=== PATIENT | female | born 1990 | race Hispanic/Latino ===

== ENCOUNTER 2023-12-17 22:48 | Emergency (ER) | payer SELFPAY ==
[2023-12-17 23:58] LABS: Specific Gravity 1.034 (1.005-1.030); Specific Gravity > 1.030 (1.005-1.030); Sqamous Epithelial <5 /HPF (None Seen); Urine Bacteria <20 /HPF (<20); Urine Bilirubin NEGATIVE (Negative); Urine Blood 3+ (OVER) (Negative); Urine Clarity Extremely Turbid (Clear); Urine Color Dark-Brown (Yellow); Urine Crystals Unidentified Few /HPF (None Seen); Urine Culture Reflex Order REFLEXED; Urine Glucose NEGATIVE (Negative); Urine Ketones NEGATIVE (Negative); Urine Microscopic Reflex YN ORDER UMIC; Urine Nitrite NEGATIVE (Negative); Urine Protein 2+ (Negative); Urine RBC >50 /HPF (None Seen); Urine Urobilinogen Normal (Normal); Urine WBC >50 /HPF (<5); Urine Yeast (Budding) Few /HPF (None Seen); Urine pH 6.5 (5.0-7.0)
[2023-12-18] MEDS ORDERED: MORPHINE 2 MG/ML SYR ONE (00:42)
[2023-12-18 00:46] LABS: Absolute Basophils 0.1 K/uL (0-0.5); Absolute Eosinophils 0.2 K/uL (0-0.5); Absolute Lymphocytes (CBC) 2.3 K/uL (0.7-4.9); Absolute Monocytes 0.7 K/uL (0.1-1.3); Absolute Neutrophil 6.3 K/uL (1.8-8.0); Basophils % 0.5 % (0-1.3); Eosinophils % 2.3 % (0-4.4); Hematocrit 37.3 % (36.0-45.0); Hemoglobin 12.9 g/dL (12.0-15.0); Lymphocytes % 24.1 % (15.3-44.8); MCHC 34.6 g/dL (32.0-36.0); MCV 89.7 fL (80-100); MPV 9.7 fL (7.6-11.3); Monocytes % 7.7 % (3.3-12.3); Neutrophils % 65.4 % (41.7-73.7); Platelets 236 thou/uL (152-406); RBC Red Blood Cell Count 4.16 M/uL (3.86-4.86); Red Cell Distribution Width 13.3 % (12.1-15.2)
[2023-12-18 01:15] LABS: Anion Gap 7.6 mEq/L (5.0-15.0); Potassium 3.6 mEq/L (3.5-5.1)
[2023-12-18] MEDS ORDERED: NA CHLORIDE 0.9% 1,000 ML ONE (02:10)
[2023-12-18] MEDS ORDERED: ACETAMINOPHEN 500 MG TAB ONE (02:55)
--- NOTE | 2023-12-18 03:59 | EDPHYS ---
Physician Documentation [facility] Name: Poli Omalley Age: 33 yrs Sex: Female : 1990 Arrival Date: 12/17/2023 Time: 22:48 Bed 6 Private MD: ED Physician Ge Mclaughlin HPI: 12/17 00:00 This 33 yrs old Female presents to ER via Ambulatory with complaints of cp Vaginal Bleeding, + Preg <12wks, Abdominal Cramping. 00:00 The patient presents to the emergency department with vaginal bleeding, with clots. The cp estimated gestational age is 6 weeks. Associated signs and symptoms: Pertinent positives: left lower abdomen pain, Pertinent negatives: chest pain, diarrhea, fever, vomiting. 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 - Social history:: Smoking status: Patient denies any tobacco usage or history of. ROS: 12/17 00:05 Constitutional: Negative for body aches, chills, fever, poor PO intake, cp 00:05 Cardiovascular: Negative for chest pain, palpitations, cp 00:05 Respiratory: Negative for cough, shortness of breath, wheezing, 00:05 Abdomen/GI: Positive for abdominal pain, of the left lower quadrant, 00:05 : Positive for vaginal bleeding, Negative for urinary symptoms, hematuria, 00:05 Neuro: Negative for altered mental status, dizziness, headache, weakness, 00:05 All other systems are negative, Exam: 00:08 ECG was reviewed by the Attending Physician. cp 00:10 Constitutional: The patient appears in no acute distress, alert, awake, non-toxic, well cp developed, well nourished, 00:10 Head/Face: Normocephalic, atraumatic. cp 00:10 Eyes: Periorbital structures: appear normal, Conjunctiva: normal, no exudate, no injection, Sclera: no appreciated abnormality, Lids and lashes: appear normal, bilaterally, 00:10 ENT: External ear(s): are unremarkable, Nose: is normal, Mouth: Lips: moist, Oral mucosa: pink and intact, moist, Posterior pharynx: Airway: no evidence of obstruction, patent, 00:10 Chest/axilla: Inspection: normal, 00:10 Cardiovascular: Rate: tachycardic, Rhythm: regular, 00:10 Respiratory: the patient does not display signs of respiratory distress, Respirations: normal, no use of accessory muscles, no retractions, labored breathing, is not present, Breath sounds: are clear throughout, no decreased breath sounds, no stridor, no wheezing, 00:10 Abdomen/GI: Inspection: abdomen appears normal, Bowel sounds: active, all quadrants, Palpation: soft, in all quadrants, moderate abdominal tenderness, in the left lower quadrant, rebound tenderness, is not appreciated, involuntary guarding, is not appreciated, 00:10 Back: pain, is absent, ROM is normal, Vital Signs: 12/16 23:16 BP 148 / 92; Pulse 119; Resp 18 S; Temp 98.6(O); Pulse Ox 100% on R/A; Weight 76 kg as6 (R); Height 5 ft. 2 in. (R); Pain 9/10; 12/17 00:32 BP 131 / 86; Pulse 116; Pulse Ox 100% on R/A; tm6 01:20 BP 127 / 79; Pulse 100; Pulse Ox 97% on R/A; tm6 02:54 BP 123 / 87; Pulse 96; Pulse Ox 99% on R/A; tm6 04:14 BP 103 / 65; Pulse 88; Resp 18; Temp 97.1(IR); Pulse Ox 98% on R/A; Pain 4/10; cm10 12/16 23:16 Body Mass Index 29.69 (76.00 kg, 160 cm) as6 12/16 23:16 Pain Scale: Adult as6 04:14 Pain Scale: Adult cm10 MDM: 12/16 23:19 Patient medically screened. [facility] 12/17 00:00 Differential diagnosis: STD, ectopic . cp 03:57 Data reviewed: vital signs, nurses notes, lab test result(s), EKG, radiologic studies, cp ultrasound. 12/16 23:32 Order name: Abo/rh Typing; Complete Time: 01:55 12/17 01:55 Interpretation: Reviewed. 12/16 23:32 Order name: Basic Metabolic Panel; Complete Time: 01:20 cp 12/17 01:20 Interpretation: Normal except: GLUC 111; BUN 23; CRE 1.18; GFR 62. 12/16 23:32 Order name: CBC with Diff; Complete Time: 01:15 cp 12/16 23:32 Order name: Test, Urine; Complete Time: 00:33 cp 12/17 00:37 Interpretation: Reviewed. 12/16 23:32 Order name: Quantitative Hcg; Complete Time: 01:20 cp 12/17 01:20 Interpretation: Reviewed. 12/16 23:32 Order name: Urinalysis w/ reflexes; Complete Time: 00:33 cp 12/17 01:15 Interpretation: Reviewed. 12/17 00:01 Order name: Urine Culture EDMS 12/17 02:14 Order name: ABO/RH no charge; Complete Time: 03:32 EDMS 12/17 03:32 Interpretation: Reviewed. 12/17 01:54 Order name: US Transvaginal Ob 12/16 23:32 Order name: IV Saline Lock; Complete Time: 00:29 12/16 23:32 Order name: Labs collected and sent; Complete Time: 00:29 cp 12/16 23:32 Order name: NPO; Complete Time: 00:29 cp EC:08 Rate is 108 beats/min. Rhythm is regular. MS interval is normal. QRS interval is cp normal. QT interval is normal. T waves are Inverted in lead aVR. Interpreted by me. Reviewed by me. Administered Medications: 00:56 Drug: morphine IVP or IV 2 mg IVP once over 4 mins Route: IVP; Infused Over: 4 mins; cm10 Site: left antecubital; 03:55 Follow up: Response: No adverse reaction cm10 02:13 Drug: NS 0.9% IV 1000 ml IV at 1 bolus Per protocol; 1000 mL bolus Route: IV; Rate: 1 cm10 bolus; Site: left antecubital; 03:55 Follow up: Response: No adverse reaction; IV Status: Completed infusion; IV Intake: cm10 1000ml 02:58 Drug: Acetaminophen PO 1000 mg PO once Route: PO; tm6 03:55 Follow up: Response: No adverse reaction cm10 Disposition Summary: 12/18/23 03:58 Discharge Ordered Notes: Location: Home cp Problem: new cp Symptoms: have improved cp Condition: Stable cp Diagnosis - Threatened cp Followup: cp - With: Private Physician - When: 48 Hours - Reason: Repeat Beta-HCG (48 Hours) Discharge Instructions: - Discharge Summary Sheet cp - Care cp - Threatened Miscarriage cp - Vaginal Bleeding During , First Trimester cp - Activity Restriction During cp - Form - Excuse from Work, School, or Physical Activity cp Forms: - Medication Reconciliation Form cp - Thank You Letter cp - Antibiotic Education cp - Prescription Opioid Use cp - Patient Portal Instructions cp - Leadership Thank You Letter cp Prescriptions: - Macrobid 100 mg Oral Capsule - take 1 capsule ORAL route every 12 hours for 7 days; 14 capsule; Refills: 0, cp Product Selection Permitted Signatures: Dispatcher [employer] EDMS Ge Mclaughlin MD MD ashwini Ge Peck PA PA cp Renaldo Monroe RN RN as6 Ember Escoto RN RN cm10 Anai Valdes RN RN tm6 Corrections: (The following items were deleted from the chart) 12/16 23:32 23:32 ABO/RH TYPING+BB.LAB.BRZ ordered. EDMS EDMS 23:32 23:32 BASIC METABOLIC PANEL+C.LAB.BRZ ordered. EDMS EDMS 23:32 23:32 CBC+H.LAB.BRZ ordered. EDMS EDMS 23:32 23:32 Test, Urine+UC.LAB.BRZ ordered. EDMS EDMS 23:32 23:32 QUANTITATIVE HCG+C.LAB.BRZ ordered. EDMS EDMS 23:32 23:32 Urinalysis+U.LAB.BRZ ordered. EDMS EDMS
--- NOTE | 2023-12-18 03:59 | ER ---
Nurse's Notes [facility] Name: Poli Omalley Age: 33 yrs Sex: Female : 1990 Arrival Date: 12/17/2023 Time: 22:48 Bed 6 Private MD: Diagnosis: Threatened Presentation: 12/16 23:16 Chief complaint: Patient states: appox 6 weeks gestation with vaginal bleeding that as6 started today and cramping x2 days. Coronavirus screen: At this time, the client does not indicate any symptoms associated with coronavirus-19. Ebola Screen: No symptoms or risks identified at this time. Initial Sepsis Screen: Does the patient meet any 2 criteria? No. Patient's initial sepsis screen is negative. Does the patient have a suspected source of infection? No. Patient's initial sepsis screen is negative. Risk Assessment: Do you want to hurt yourself or someone else? Patient reports no desire to harm self or others. Onset of symptoms was December 15, 2023. 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 - Social history:: Smoking status: Patient denies any tobacco usage or history of. Screenin/31 00:58 [facility] ED Fall Risk Assessment (Adult) History of falling in the last 3 months, cm10 including since admission No falls in past 3 months (0 pts) Confusion or Disorientation No (0 pts) Intoxicated or Sedated No (0 pts) Impaired Gait No (0 pts) Mobility Assist Device Used No (0 pt) Altered Elimination No (0 pt) Score/Fall Risk Level 0 - 2 = Low Risk Oriented to surroundings, Maintained a safe environment, Hourly rounding (assess needs \T\ fall precautionary measures) done. Abuse screen: Denies threats or abuse. Denies injuries from another. Nutritional screening: No deficits noted. Tuberculosis screening: No symptoms or risk factors identified. Assessment: 00:56 Obstetrical Assessment: Patient reports abdominal cramping, headache. General: Appears cm10 in no apparent distress. comfortable, Behavior is calm, cooperative. Pain: Complains of pain in abdomen Pain currently is 9 out of 10 on a pain scale. Quality of pain is described as crampy. Neuro: No deficits noted. Level of Consciousness is awake, alert, obeys commands, Oriented to person, place, time, situation. Cardiovascular: No deficits noted. Capillary refill < 3 seconds Patient's skin is warm and dry. Respiratory: No deficits noted. Airway is patent Respiratory effort is even, unlabored, Respiratory pattern is regular, symmetrical. : No deficits noted. Reports cramping, vaginal bleeding that is. Derm: No deficits noted. Skin is intact, Skin is pink, warm \T\ dry. Musculoskeletal: No deficits noted. Range of motion: intact in all extremities. 01:20 Reassessment: Patient and/or family updated on plan of care and expected duration. Pain tm6 level reassessed. Patient is alert, oriented x 3, equal unlabored respirations, skin warm/dry/pink. 02:54 Reassessment: Patient and/or family updated on plan of care and expected duration. Pain tm6 level reassessed. Patient is alert, oriented x 3, equal unlabored respirations, skin warm/dry/pink. Vital Signs: 12/16 23:16 BP 148 / 92; Pulse 119; Resp 18 S; Temp 98.6(O); Pulse Ox 100% on R/A; Weight 76 kg as6 (R); Height 5 ft. 2 in. (R); Pain 9/10; 12/17 00:32 BP 131 / 86; Pulse 116; Pulse Ox 100% on R/A; tm6 01:20 BP 127 / 79; Pulse 100; Pulse Ox 97% on R/A; tm6 02:54 BP 123 / 87; Pulse 96; Pulse Ox 99% on R/A; tm6 04:14 BP 103 / 65; Pulse 88; Resp 18; Temp 97.1(IR); Pulse Ox 98% on R/A; Pain 4/10; cm10 03/30 23:16 Body Mass Index 29.69 (76.00 kg, 160 cm) as6 12/16 23:16 Pain Scale: Adult as6 04:14 Pain Scale: Adult cm10 ED Course: 12/16 22:53 Patient arrived in ED. im 23:14 Ge Peck PA is PHCP. cp 23:14 Ge Mclaughlin MD is Attending Physician. cp 23:18 Triage completed. as6 23:18 Arm band placed on. as6 23:42 Test, Urine Sent. as6 23:42 Urinalysis w/ reflexes Sent. as6 12/17 00:29 Abo/rh Typing Sent. tm6 00:29 Basic Metabolic Panel Sent. tm6 00:29 CBC with Diff Sent. tm6 00:29 Quantitative Hcg Sent. tm6 00:39 Anai Valdes, MOUSTAPHA is Primary Nurse. tm6 00:42 Inserted saline lock: 22 gauge in left antecubital area, using aseptic technique. tm6 00:58 Patient has correct armband on for positive identification. Bed in low position. Call cm10 light in reach. Side rails up X2. Provided Education on: ER process and procedures.. Pulse ox on. NIBP on. 02:36 US Transvaginal Ob In Process Unspecified. EDMS 04:15 No provider procedures requiring assistance completed. IV discontinued, intact, cm10 bleeding controlled, No redness/swelling at site. Pressure dressing applied. Administered Medications: 00:56 Drug: morphine IVP or IV 2 mg IVP once over 4 mins Route: IVP; Infused Over: 4 mins; cm10 Site: left antecubital; 03:55 Follow up: Response: No adverse reaction cm10 02:13 Drug: NS 0.9% IV 1000 ml IV at 1 bolus Per protocol; 1000 mL bolus Route: IV; Rate: 1 cm10 bolus; Site: left antecubital; 03:55 Follow up: Response: No adverse reaction; IV Status: Completed infusion; IV Intake: cm10 1000ml 02:58 Drug: Acetaminophen PO 1000 mg PO once Route: PO; tm6 03:55 Follow up: Response: No adverse reaction cm10 Medication: 00:58 VIS not applicable for this client. cm10 Intake: 03:55 IV: 1000ml; Total: 1000ml. cm10 Outcome: 03:58 Discharge ordered by . cp 04:15 Discharged to home ambulatory, with significant other, cm10 04:15 Condition: good 04:15 Discharge instructions given to patient, significant other, Instructed on discharge instructions, follow up and referral plans. medication usage, Demonstrated understanding of instructions, follow-up care, medications, Prescriptions given X 1, 04:15 Patient left the ED. cm10 Signatures: Dispatcher [employer] EDMS Ge Peck PA PA cp Slawson, Ashby, RN RN as6 Dorothy Perales Clarissa RN RN cm10 Anai Valdes RN RN tm6
[2023-12-18 08:53] VITALS: BP 103/65; TEMP 97.1; O2SAT 98
--- NOTE | 2023-12-18 16:25 | RAD REPORT ---
EXAM DESCRIPTION: US - Transvaginal OB - 12/18/2023 2:34 am CLINICAL HISTORY: Female, 33 years old, vaginal bleeding;Abd pain Additional history: LMP 11/01/2023; EGA 6 weeks 5 days; WALT 08/07/2024 COMPARISON: None. TECHNIQUE: Transvaginal ultrasound of the pelvis. FINDINGS: UTERUS: Measures 9.6 x 5.5 x 7.3 cm. A sac at the fundal aspect of the endometrium has nakia n diameter of 0.9 cm. Normal morphology yolk sac measuring 0.4 cm. No visualized pole. No visua lized. Gestational hemorrhage. Homogeneous myometrium without discrete lesion. RIGHT OVARY: Measures 2.4 x 1.2 x 1.7 cm, with volume of 2.5 mL. Normal morphology. Normal color and spectral Doppler flow. LEFT OVARY: Measures 3.6 x 1.8 x 4.3 cm, with volume of 14.3 mL. Thick-walled, probable corpus luteum cyst. Normal color and spectral Doppler flow. FREE FLUID: No visualized free fluid. IMPRESSION: 1. Intrauterine gestational sac with a mean diameter of 0.9 cm, corresponding to estim ated gestational age of 5 weeks 5 days (WALT 08/14/2024). Findings most consistent with normal early p regnancy. Recommend clinical follow-up with quantitative hCG values, and follow-up ultrasound in [place] 11 days for recharacterization. 2. Sonographic and provided clinical dating differ by one week, supporting redating. Electronically signed by: Darren Berg MD 12/18/2023 04:27 AM CDT Due to temporary technical issues with the PACS/Fluency reporting system, reports are being signed by the in house radiologists without review as a courtesy to insure prompt reporting. The interpreting radiologist is fully responsible for the content of the report
--- NOTE | 2023-12-19 13:43 | EKG ---
Test Date: 2023-12-18 Test Time: 00:01:04 Package Lift Operator: NITA MEASUREMENT RESULTS: Intervals: Rate: 108 WI: 152 QRSD: 76 QT: 336 QTc: 450 [place]: P: 12 WI: 152 QRS: 17 T: 27 INTERPRETIVE STATEMENTS: Sinus tachycardia Otherwise normal ECG No previous ECG available for comparison Electronically Signed On 12-19-23 13:37:21 CDT by Pasquale Alvarez
== END 2023-12-18 04:15 | disposition home or self-care (01) ==
LOC: ER 22:48
DX: O20.0 Threatened abortion (principal); Z3A.01 Less than 8 weeks gestation of pregnancy
CPT/HCPCS: 36415; 76817; 80048; 81001; 81025; 84702; 85025; 86900; 86901; 87086; 87088; 93005; 96361; 96374; 99284; J2270; J7030

== ENCOUNTER 2023-12-18 08:37 | Emergency (ER) | payer SELFPAY ==
[2023-12-18] MEDS ORDERED: ONDANSETRON 4 MG/2 ML VIAL ONE (09:24)
[2023-12-18] MEDS ORDERED: HYDROMORPHONE HCL 1 MG/ML INJ ONE (09:24)
[2023-12-18 09:26] LABS: Absolute Eosinophils 0.2 K/uL (0-0.5); Absolute Lymphocytes (CBC) 1.8 K/uL (0.7-4.9); Absolute Monocytes 0.5 K/uL (0.1-1.3); Absolute Neutrophil 5.2 K/uL (1.8-8.0); Basophils % 0.5 % (0-1.3); Eosinophils % 2.4 % (0-4.4); Hematocrit 37.8 % (36.0-45.0); Lymphocytes % 23.9 % (15.3-44.8); MCHC 34.4 g/dL (32.0-36.0); MPV 9.4 fL (7.6-11.3); Monocytes % 6.2 % (3.3-12.3); Nucleated Red Blood Cells % 0.1 % (0-0); Platelets 223 thou/uL (152-406); Red Cell Distribution Width 13.5 % (12.1-15.2)
[2023-12-18 09:46] LABS: Specific Gravity 1.027 (1.005-1.030); Sqamous Epithelial <5 /HPF (None Seen); Urine Bacteria None Seen /HPF (<20); Urine Bilirubin NEGATIVE (Negative); Urine Blood 2+ (Negative); Urine Clarity Clear (Clear); Urine Color Light-Yellow (Yellow); Urine Culture Reflex Order NOT NEEDED; Urine Glucose NEGATIVE (Negative); Urine Ketones NEGATIVE (Negative); Urine Microscopic Reflex YN ORDER UMIC; Urine Nitrite NEGATIVE (Negative); Urine Protein NEGATIVE (Negative); Urine RBC None Seen /HPF (None Seen); Urine Urobilinogen Normal (Normal); Urine WBC <5 /HPF (<5); Urine pH 6.5 (5.0-7.0)
[2023-12-18 09:47] LABS: Specific Gravity 1.027 (1.005-1.030)
[2023-12-18 10:01] LABS: Anion Gap 9.2 mEq/L (5.0-15.0); Potassium 4.2 mEq/L (3.5-5.1)
--- NOTE | 2023-12-18 10:37 | ER ---
Nurse's Notes [facility] Name: Poli Omalley Age: 33 yrs Sex: Female : 1990 Arrival Date: 12/18/2023 Time: 08:37 Bed 10 Private MD: Diagnosis: Spontaneous /miscarriage, vaginal bleeding Presentation: 12/17 08:55 Chief complaint: Patient states: Vaginal bleeding with clots is getting worse since her 1 visit here yesterday. G4, P1 approximately 7 weeks . Coronavirus screen: Client denies travel out of the [place] in the last 14 days. At this time, the client does not indicate any symptoms associated with coronavirus-19. Ebola Screen: Patient denies travel to an Ebola-affected area in the 21 days before illness onset. Initial Sepsis Screen: Does the patient meet any 2 criteria? No. Patient's initial sepsis screen is negative. Does the patient have a suspected source of infection? No. Patient's initial sepsis screen is negative. Risk Assessment: Do you want to hurt yourself or someone else? Patient reports no desire to harm self or others. Onset of symptoms was December 16, 2023. 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 - Social history:: Smoking status: Patient denies any tobacco usage or history of. Screenin:10 [facility] ED Fall Risk Assessment (Adult) History of falling in the last 3 months, db including since admission No falls in past 3 months (0 pts) Confusion or Disorientation No (0 pts) Intoxicated or Sedated No (0 pts) Impaired Gait No (0 pts) Mobility Assist Device Used No (0 pt) Altered Elimination No (0 pt) Score/Fall Risk Level 0 - 2 = Low Risk Oriented to surroundings, Maintained a safe environment. Abuse screen: Denies threats or abuse. Denies injuries from another. Nutritional screening: No deficits noted. Tuberculosis screening: No symptoms or risk factors identified. Assessment: 09:09 Obstetrical Assessment: General assessment: awake and alert, skin warm and dry, Patient db reports Abdominal pain. Reassessment: Patient appears in no apparent distress at this time. Patient and/or family updated on plan of care and expected duration. Pain level reassessed. Patient is alert, oriented x 3, equal unlabored respirations, skin warm/dry/pink. General: Appears in no apparent distress. comfortable, Behavior is calm, cooperative. Pain: Complains of pain in abdomen. Neuro: Level of Consciousness is awake, alert, obeys commands, Oriented to person, place, time, situation. Respiratory: Airway is patent Respiratory effort is even, unlabored, Respiratory pattern is regular, symmetrical. GI: Reports lower abdominal pain, cramping. 10:48 Reassessment: SENIOR ENVIRONMENTAL SCIENTIST USED TO UPDATE PATIENT REGARDING DIAGNOSIS. PHYSICIAN db EXPLAINED TO PATIENT. 10:55 Reassessment: Patient appears in no apparent distress at this time. Patient and/or db family updated on plan of care and expected duration. Pain level reassessed. Patient is alert, oriented x 3, equal unlabored respirations, skin warm/dry/pink. Vital Signs: 08:55 BP 139 / 98; Pulse 103; Resp 17; Temp 97.2; Pulse Ox 100% on R/A; Weight 34.47 kg; ll1 Height 5 ft. 2 in. ; Pain 10/10; 09:20 BP 125 / 79; Pulse 86; Resp 18; Pulse Ox 100% on R/A; db 09:25 BP 113 / 80; Pulse 88; Resp 18; Pulse Ox 100% on R/A; db 10:45 BP 121 / 81; Pulse 86; Resp 18; Pulse Ox 100% on R/A; db 08:55 Body Mass Index 13.90 (34.47 kg, 157.48 cm) ll1 08:55 Pain Scale: Adult ll1 ED Course: 08:39 Patient arrived in ED. ra3 08:48 Deon Zhang MD is Attending Physician. sp3 08:54 Arm band placed on Patient placed in an exam room, on a stretcher. ll1 08:57 Triage completed. ll1 09:09 Nickie Tobin, RN is Primary Nurse. db 09:10 Patient has correct armband on for positive identification. Bed in low position. Call db light in reach. Side rails up X 1. Pulse ox on. NIBP on. 09:18 Inserted saline lock: 20 gauge in left antecubital area, using aseptic technique. Blood db collected. 09:39 Initial lab(s) drawn, by me, sent to lab. db 10:17 Patient taken to ultrasound. db 10:35 Ashley Saunders MD is Referral Physician. sp3 10:50 US Transvaginal Ob In Process Unspecified. EDMS 10:55 Provided Education on: DISCHARGE. db 10:55 No provider procedures requiring assistance completed. IV discontinued, intact, db bleeding controlled, No redness/swelling at site. Administered Medications: 09:25 Drug: HYDROmorphone IVP 1 mg IVP once Route: IVP; Site: left antecubital; db 10:55 Follow up: Response: No adverse reaction db 09:25 Drug: Ondansetron IVP 4 mg IVP once; over 2 minutes Route: IVP; Site: left antecubital; db 10:55 Follow up: Response: No adverse reaction db Medication: 10:55 VIS not applicable for this client. db Outcome: 10:36 Discharge ordered by . sp3 10:55 Discharged to home ambulatory, with family, db 10:55 Condition: stable 10:55 Discharge instructions given to patient, Instructed on discharge instructions, follow up and referral plans. 11:32 Patient left the ED. db Signatures: Dispatcher [employer] EDMS Ester Godoy RN RN ll1 Deon Zhang MD MD sp3 Nickie Tobin RN RN db Mely Green ra3 Corrections: (The following items were deleted from the chart) 08:57 08:55 Onset of symptoms was December 17, 2023 ll1 ll1 08:59 08:55 BP 139 / 98; Pulse 103bpm; Resp 17bpm; Pulse Ox 100% RA; Temp 97.2F; Pain 10, ll1 Adult; ll1 09:40 09:18 Inserted saline lock: 20 gauge in left antecubital area, using aseptic technique. db Blood collected. db
--- NOTE | 2023-12-18 10:37 | EDPHYS ---
Physician Documentation [facility] – [place], [place] Name: Poli Omalley Age: 33 yrs Sex: Female : 1990 Arrival Date: 12/18/2023 Time: 08:37 Bed 10 Private MD: ED Physician Deon Zhang HPI: 12/17 09:09 This 33 yrs old Female presents to ER via Ambulatory with complaints of sp3 Vaginal Bleeding, + Preg <12wks. 09:09 33-year-old female G4 A2 P1 with LMP sometime 7 to 8 weeks ago now presents to the ED sp3 with chief complaint significant vaginal bleeding and lower abdominal cramping. Patient is concerned she has "lost a baby". She has 2 prior spontaneous miscarriages in the past. She denies any other medical history. On review of systems she denies headache, fever, URI symptoms, chest pain, shortness breath, back pain, upper abdominal pain, vomit, diarrhea, rash, bleeding anywhere else, syncope, near syncope, or any other signs or symptoms on ROS at this time.. 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 - Social history:: Smoking status: Patient denies any tobacco usage or history of. ROS: 09:10 Constitutional: Negative for fever, chills, and weight loss, Eyes: Negative for injury, sp3 pain, redness, and discharge, ENT: Negative for injury, pain, and discharge, Neck: Negative for injury, pain, and swelling, Cardiovascular: Negative for chest pain, palpitations, and edema, Respiratory: Negative for shortness of breath, cough, wheezing, and pleuritic chest pain, Back: Negative for injury and pain, MS/Extremity: Negative for injury and deformity, Skin: Negative for injury, rash, and discoloration, Neuro: Negative for headache, weakness, numbness, tingling, and seizure, Psych: Negative for depression, anxiety, suicide ideation, homicidal ideation, and hallucinations, Allergy/Immunology: Negative for hives, rash, and allergies, Endocrine: Negative for neck swelling, polydipsia, polyuria, polyphagia, and marked weight changes, 09:10 All other systems are negative, Exam: 09:10 Constitutional: This is a well developed, well nourished patient who is awake, alert, sp3 and in no acute distress. Head/Face: Normocephalic, atraumatic. Eyes: Pupils equal round and reactive to light, extra-ocular motions intact. Lids and lashes normal. Conjunctiva and sclera are non-icteric and not injected. Cornea within normal limits. Periorbital areas with no swelling, redness, or edema. ENT: Nares patent. No nasal discharge, no septal abnormalities noted. External auditory canals are clear. Oropharynx with no redness, swelling, or masses, exudates, or evidence of obstruction, uvula midline. Mucous membranes moist. Neck: Trachea midline, no thyromegaly or masses palpated, and no cervical lymphadenopathy. Supple, full range of motion without nuchal rigidity, or vertebral point tenderness. No Meningismus. Chest/axilla: Normal chest wall appearance and motion. Nontender with no deformity. No lesions are appreciated. Cardiovascular: Regular rate and rhythm with a normal S1 and S2. No gallops, murmurs, or rubs. Normal PMI, no JVD. No pulse deficits. Respiratory: Lungs have equal breath sounds bilaterally, clear to auscultation and percussion. No rales, rhonchi or wheezes noted. No increased work of breathing, no retractions or nasal flaring. Abdomen/GI: Soft, non-tender, with normal bowel sounds. No distension or tympany. No guarding or rebound. No evidence of tenderness throughout. Back: No spinal tenderness. No costovertebral tenderness. Full range of motion. Skin: Warm, dry with normal turgor. Normal color with no rashes, no lesions, and no evidence of cellulitis. MS/ Extremity: Pulses equal, no cyanosis. Neurovascular intact. Full, normal range of motion. Neuro: Awake and alert, GCS 15, oriented to person, place, time, and situation. Cranial nerves II-XII grossly intact. Motor strength 5/5 in all extremities. Sensory grossly intact. Cerebellar exam normal. Normal gait. Psych: Awake, alert, with orientation to person, place and time. Behavior, mood, and affect are within normal limits. 09:10 : Patient has vaginal bleeding with clots. Lower abdominal pain on palpation mild in nature., Vital Signs: 08:55 BP 139 / 98; Pulse 103; Resp 17; Temp 97.2; Pulse Ox 100% on R/A; Weight 34.47 kg; ll1 Height 5 ft. 2 in. ; Pain 10/10; 09:20 BP 125 / 79; Pulse 86; Resp 18; Pulse Ox 100% on R/A; db 09:25 BP 113 / 80; Pulse 88; Resp 18; Pulse Ox 100% on R/A; db 10:45 BP 121 / 81; Pulse 86; Resp 18; Pulse Ox 100% on R/A; db 08:55 Body Mass Index 13.90 (34.47 kg, 157.48 cm) ll1 08:55 Pain Scale: Adult ll1 MDM: 08:49 Patient medically screened. sp3 09:11 Data reviewed: vital signs, nurses notes, lab test result(s), radiologic studies. ED sp3 course: 33-year-old female with probable active miscarriage versus threatened miscarriage. Workup will include ultrasound, laboratory values including quant hCG, urinalysis and pain medication and hemodynamic support as needed.. 10:28 ED course: Small gestational sac only on ultrasound with thickened endometrial stripe sp3 consistent with spontaneous miscarriage in progress. We will follow-up on Rh and discharge patient home with gynecology follow-up. Patient is still having bleeding and I do not believe she is a missed AB.. 12/17 08:49 Order name: Abo/rh Typing; Complete Time: 10:21 sp3 12/17 08:49 Order name: Basic Metabolic Panel; Complete Time: 10:21 sp3 12/17 08:49 Order name: CBC with Diff; Complete Time: 10:21 sp3 12/17 08:49 Order name: Test, Urine; Complete Time: 10:21 sp3 12/17 08:49 Order name: Quantitative Hcg; Complete Time: 10:21 sp3 12/17 08:49 Order name: Urinalysis w/ reflexes; Complete Time: 10:21 sp3 12/17 08:49 Order name: US Transvaginal Ob; Complete Time: 11:27 sp3 12/17 08:49 Order name: IV Saline Lock; Complete Time: 09:39 sp3 12/17 08:49 Order name: Labs collected and sent; Complete Time: 09:39 sp3 12/17 08:49 Order name: NPO; Complete Time: :39 sp3 Administered Medications: 09:25 Drug: HYDROmorphone IVP 1 mg IVP once Route: IVP; Site: left antecubital; db 10:55 Follow up: Response: No adverse reaction db 09:25 Drug: Ondansetron IVP 4 mg IVP once; over 2 minutes Route: IVP; Site: left antecubital; db 10:55 Follow up: Response: No adverse reaction db Disposition Summary: 12/18/23 10:36 Discharge Ordered Notes: Location: Home sp3 Condition: Stable sp3 Diagnosis - Spontaneous /miscarriage, vaginal bleeding sp3 Followup: sp3 - With: Ashley Saunders MD - When: Upon discharge from the Emergency Department - Reason: Recheck today's complaints Discharge Instructions: - Discharge Summary Sheet sp3 - Incomplete Miscarriage sp3 Forms: - Work release form ld1 - Medication Reconciliation Form sp3 - Thank You Letter sp3 - Antibiotic Education sp3 - Prescription Opioid Use sp3 - Patient Portal Instructions sp3 - Leadership Thank You Letter sp3 Signatures: Dispatcher [employer] EDEster Fenton RN RN ll1 Deon Zhang MD MD sp3 Nickie Tobin RN RN db Corrections: (The following items were deleted from the chart) 08:49 08:49 Transvaginal Ob+US.RAD.BRZ ordered. EDMS EDMS
--- NOTE | 2023-12-18 11:23 | RAD REPORT ---
EXAM DESCRIPTION: US - Transvaginal OB - 12/18/2023 10:49 am CLINICAL HISTORY: VAGINAL BLEEDING COMPARISON: Transvaginal OB dated 12/18/2023 FINDINGS: Gestational sac and yolk sac again identified . No pole or heart tones identif ied. The gestational sac measures 1.3 cm. Question bicornuate uterus. The left ovary has volume of 3.8 cc. Vascular flow is present. The right ovary was not visualized . No free fluid. IMPRESSION: 1. Gestational sac and yolk sac again identified. No pole. This could be due to ea rly dates. 2. Vascular flow present left ovary. Right ovary not visualized.
[2023-12-18 12:47] VITALS: BP 121/81; TEMP 97.2; O2SAT 100
== END 2023-12-18 11:32 | disposition home or self-care (01) ==
LOC: ER 08:37
DX: O03.9 Complete or unspecified spontaneous abortion without complication (principal)
CPT/HCPCS: 36415; 76817; 80048; 81001; 81025; 84702; 85025; 86900; 86901; 96374; 96375; 99285; J1170; J2405